=== PATIENT | female | born 2000 | race Caucasian/White ===

== ENCOUNTER 2021-08-17 22:48 | Emergency (ER) | payer OTHER ==
[~2021-08-17] VITALS: Ht 167.6 cm; Wt 55.8 kg
[2021-08-17] MEDS ORDERED: PRENATABS FA T1 EACH (23:28)
[2021-08-17] MEDS ORDERED: FOLIC ACID0.8 M1 (23:28)
[2021-08-18] MEDS ORDERED: PEPCID40 MG PO (05:55)
== END 2021-08-18 06:04 ==
LOC: EMR PED 22:48 → ER 22:48
DX: O26.892 Other specified pregnancy related conditions, second trimester (principal); Z3A.17 17 weeks gestation of pregnancy; R10.84 Generalized abdominal pain

== ENCOUNTER 2022-01-29 08:32 | Inpatient (IN) | payer OTHER ==
[~2022-01-29] VITALS: Ht 167.6 cm; Wt 3.6 kg
[~2022-01-29 08:32] MED LIST: FOLIC ACID0.8 M1; PEPCID40 MG PO; PRENATABS FA T1 EACH; ZITHROMAX500 MG PO
[2022-01-29] MEDS ORDERED: IRON325 MG PO (10:04)
== END 2022-02-01 13:56 | disposition home or self-care (01) | DRG 788 ==
LOC: LDR 08:32 → OB/GYN 15:43
PROVIDERS: ADMIT Obstetrics & Gynecology Obstetrics; ATTEND Obstetrics & Gynecology Obstetrics
PROC: 4A1HXCZ Monitoring of Products of Conception, Cardiac Rate, External Approach (ICD-10-PCS; 2022-01-29)
PROC: 10D00Z1 Extraction of Products of Conception, Low, Open Approach (ICD-10-PCS; principal; 2022-01-29 12:00)
DX: O62.0 Primary inadequate contractions (principal); O36.63X0 Maternal care for excessive fetal growth, third trimester, not applicable or unspecified; Z3A.39 39 weeks gestation of pregnancy; Z37.0 Single live birth; Z20.822 Contact with and (suspected) exposure to COVID-19